=== PATIENT | male | born 1955 | race Two or more races ===

== ENCOUNTER 2018-08-16 20:22 | Emergency (ER) | payer SELFPAY ==
[~2018-08-16] VITALS: Ht 182.9 cm; Wt 82.3 kg
[2018-08-16 20:31] VITALS: Ht 182.9 cm; Wt 82.3 kg
[2018-08-16] MEDS ORDERED: BAYER CHEWABLE81 MG PO (20:33)
[2018-08-16] MEDS ORDERED: AZILECT1 MG PO (20:33)
[2018-08-16] MEDS ORDERED: LIPITOR40 MG PO (20:33)
[2018-08-16] MEDS ORDERED: NORVASC5 MG PO (20:33)
[2018-08-16 21:06] LABS: BASOPHILS 0.4 % (0-2); EOSINOPHILS 1.2 % (0-7); HEMATOCRIT 38.6 % (42.0-54.0); HEMOGLOBIN 13.9 g/dL (13.5-17.5); IMMATURE GRANULOCYTES 0.3 % (0-5); LYMPHOCYTES 33.6 % (15-50); MCV 94.4 fL (80.0-100.0); MONOCYTES 6.7 % (2-11); NEUTROPHILS 57.8 % (40-80); PLATELET COUNT 187 10x3/uL (130-400); RBC 4.09 10x6/uL (4.20-6.10); RDW 12.9 % (11.5-14.5); WBC 7.6 10x3/uL (4.8-10.8)
[2018-08-16 21:26] LABS: ALBUMIN 3.9 g/dL (3.4-5.0); ALKALINE PHOSPHATASE 51 U/L (46-116); ALT (SGPT) 19 U/L (10-68); BILIRUBIN - TOTAL 0.49 mg/dL (0.2-1.3); CALC OSMOLALITY 283 mosm/kg (275-300); CALCIUM 8.8 mg/dL (8.5-10.1); CARBON DIOXIDE 24.2 mmol/L (21.0-32.0); CHLORIDE - SERUM 106 mmol/L (98-107); CREATININE - SERUM 0.9 mg/dL (0.6-1.3); GLUCOSE 112 mg/dL (74-106); POTASSIUM - SERUM 3.3 mmol/L (3.5-5.1); PROTEIN - SERUM 7.4 g/dL (6.4-8.2); SODIUM 142 mmol/L (136-145); UREA NITROGEN 12 mg/dL (7-18); eGFR NON AFRICAN AMERICAN > 90 mL/min (90-120)
[2018-08-16 21:33] LABS: PRO BNP 188 pg/mL (0-125)
[2018-08-16 21:39] LABS: TROPONIN-I < 0.017 ng/mL (0.000-0.060)
[2018-08-16 22:07] VITALS: BP 162/76
== END 2018-08-16 22:08 | disposition home or self-care (01) ==
LOC: D.ER 20:22
PROVIDERS: Family Medicine
DX: R07.9 Chest pain, unspecified (principal); I25.10 Atherosclerotic heart disease of native coronary artery without angina pectoris